=== PATIENT | female | born 1960 | race Caucasian/White ===

== ENCOUNTER → 2023-12-03 12:19 | Outpatient (REF) | payer OTHER, SELFPAY | LOC: WDC 12:19 | PROVIDERS: ATTENDING PHYSICIAN Family Medicine | DX: Z12.31 Encounter for screening mammogram for malignant neoplasm of breast (principal) | CPT/HCPCS: 77063; 77067 ==

== ENCOUNTER → 2025-01-08 16:15 | Outpatient (REF) | payer OTHER, SELFPAY | LOC: WDC 16:15 | PROVIDERS: ATTENDING PHYSICIAN Family Medicine | DX: Z12.31 Encounter for screening mammogram for malignant neoplasm of breast (principal) | CPT/HCPCS: 77063; 77067 ==

== ENCOUNTER 2025-02-01 06:43 | Observation (INO) | payer OTHER, SELFPAY ==
[2025-01-31 23:30] VITALS: BP 143/99; BMI 31.6
[2025-01-31 23:33] VITALS: BP 143/99
[2025-02-01] VITALS (18 sets, daily range): BP systolic 108–171; BP diastolic 65–110; PULSE 73; BMI 31.1
[2025-02-01 00:04] LABS: % Basophils 1.1 % (0-2); % Eosinophils 1.9 % (0-6); % Immature Granulocytes 0.2 % (0-0.5); % Monocytes 6.5 % (1.7-9.3); % Neutrophils 55.3 % (42.2-75.2); Absolute Basophils 0.1 10^3/uL (0-0.2); Absolute Eosinophils 0.1 10^3/uL (0-0.7); Absolute Lymphocytes 2.2 10^3/uL (1.2-3.4); Absolute Monocytes 0.4 10^3/uL (0.1-0.6); Absolute Neutrophils 3.4 10^3/uL (1.4-6.5); Hematocrit 43.6 % (37.0-47.0); Hemoglobin 14.9 g/dL (12.0-16.0); Mean Corp Hgb Conc. 34.2 g/dL (33.0-37.0); Mean Corpuscular Hgb 29.7 pg (27.0-31.0); Mean Platelet Volume 9.3 fL (7.4-10.4); Nucleated Red Blood Cells % 0 %; Platelet Count 240 10^3/uL (130-400); Red Blood Cell Count 5.01 10^6/uL (4.20-5.40); Red Cell Dist. Width 13.5 % (11.5-14.5); White Blood Cell Count 6.2 10^3/uL (4.8-10.8)
[2025-02-01 00:23] LABS: ALT (SGPT) 17 U/L (0-35); AST (SGOT) 24 U/L (14-36); Alkaline Phosphatase 86 U/L (38-126); Blood Urea Nitrogen 18 mg/dl (7-17); Calcium 10.5 mg/dl (8.4-10.2); Carbon Dioxide 22 mmol/L (22-30); Chloride 112 mmol/L (98-107); Estimated Creatinine Clearance 65 ml/min; Glucose 122 mg/dl (70-99); Potassium 4.4 mmol/L (3.5-5.1); Sodium 146 mmol/L (135-145); Total Bilirubin 0.5 mg/dl (0.2-1.3); Total Protein 7.8 g/dl (6.3-8.2); eGFR > 60.00
[2025-02-01 00:36] LABS: Troponin I < 0.012 ng/ml
[2025-02-01] MEDS: NSS 1000 IV ×3 (03:24→17:28)
[2025-02-01 03:52] LABS: Alcohol None Detected
[2025-02-01 04:22] LABS: TSH Reflex To Free T4 1.49 uIU/ml (0.47-4.68)
--- NOTE | 2025-02-01 05:00 | ED.GENMED ---
History of Present Illness
General
Chief Complaint: Weakness
Source: patient and ambulance crew
Exam Limitations: altered mental status
Time Seen by Provider: 02/01/25 02:31
Nursing documentation reviewed up to this point in time: agreed with
History of Present Illness
History of Present Illness:
This is a 64-year-old woman who resides at home with her . She has history of hypertension, maintained on lisinopril/hydrochlorothiazide. She presents via EMS after suffering a fall, denies injury but admits to generalized weakness for the
past week. She arrives via EMS. No family accompanying. Report from EMS notes that family is concerned as patient has not been acting herself.
Patient arrives quite drowsy, denies pain.
She admits to occasional alcohol use but denies recent alcohol use. She denies drug use.
She is unsure as to her current medications. According to EMS maintained on lisinopril/hydrochlorothiazide.
Past History
Past History
ED Past Medical History: HTN and Other (Hepatitis C, ankle fractures)
ED Past Surgical History: Gynecological (Tubal ligation)
Social History
Tobacco: Smoker
Alcohol: Occasional
Personal:
Living: with family
Employment: Not employed
Family History
Family History: Diabetes
Phy Exam
Physical Exam
Physical Exam:
GENERAL: 64-year-old woman appears somewhat older than stated age, mildly disheveled, moderately drowsy, frequently falling asleep during initial evaluation requiring repeated verbal and tactile stimuli. She is able to answer a few simple yes and
no questions appropriately. She denies pain.
EYE: pupils equal and reactive. anicteric. The head is normocephalic, atraumatic.
NECK: Supple, nontender, no meningismus, no significant adenopathy.
ENT: posterior pharynx is clear, oral mucosa is dry. TM clear b/l, nares patent.
CARDIAC: Regular rate and rhythm. no murmur. No palpable chest wall tenderness.
LUNGS: Clear breath sounds bilaterally, no acute respiratory distress
ABDOMEN: Soft, nondistended, without focal tenderness, no r/g, no cvat. normoactive BS.
BACK: No mid bony tenderness. No palpable bony pelvic tenderness.
NEUROLOGICAL: Moderately drowsy, oriented x 2, motor strength 5/5 bilateral upper extremities, 3/5 bilateral lower extremities. Gross sensation is intact.
SKIN: Warm and dry, normal color, skin intact. No rash.
MUSCULOSKELETAL: No C/C/E. peripheral pulses are full and equal b/l. No palpable tenderness.
PSYCH: Moderately drowsy.
Course
Orders/Labs/Results
Orders:
Orders
01/31/25 23:36
Electrocardiogram (*1) Urgent
Reason for Study: Fatigue / Weakness
01/31/25 23:37
EKG- Treatment ONCE
01/31/25 23:53
Alcohol Urgent
Complete Blood Count/With Diff Urgent
Comprehensive Metabolic Panel Urgent
TSH Reflex To Free T4 Urgent
Comment: ADD ON
Troponin I Urgent
02/01/25 00:[address] [CT Head W/o Iv Contrast] Urgent
Comment:
Reason For Exam: suspected fall with head strike
02/01/25 02:32
Add On- LAB Urgent
Tests Added?: ETOH, TSH w reflex to free T-4
02/01/25 03:10
0.9% Sodium Chloride 1000 ml [Nss] 1,000 ml IV BOLUS
CR Chest Portable - 1 View Urgent
Comment:
Reason For Exam: hypoxia, confusion
Reason Study Needs to be Portable: Unable to Transport
02/01/25 04:28
Fentanyl, Urine Urgent
Urine Drug Abuse Screen Urgent
Date Specimen was Collected: 02/01/25
Time Specimen was Collected: 04:27
Abnormal Lab Results
01/31/25 02/01/25
23:53 04:28
Sodium 146 H mmol/L
(135-145)
Chloride 112 H mmol/L
(98-107)
BUN 18 H mg/dl
(7-17)
Glucose 122 H mg/dl
(70-99)
Calcium 10.5 H mg/dl
(8.4-10.2)
U Benzodiazepines Scrn Positive H
(Negative)
U Marijuana (THC) Screen Positive H
(Negative)
01/31/25 23:53
01/31/25 23:53
Vital Signs
Initial and Last Documented VS:
Initial Vital Signs
Temp Pulse Resp BP Pulse Ox
98.8 F 98 16 143/99 94
01/31/25 23:30 01/31/25 23:30 01/31/25 23:30 01/31/25 23:30 01/31/25 23:30
Last Documented Vital Signs
Temp Pulse Resp BP Pulse Ox
98.8 F 76 12 113/81 96
01/31/25 23:30 02/01/25 02:30 02/01/25 02:30 02/01/25 02:00 02/01/25 02:30
MDM/Problems Addressed
Differential Diagnosis Includes:
Concern for acute intoxication, toxic metabolic encephalopathy, CVA, closed head injury
She remains hemodynamically stable. No respiratory distress.
Reported room air pulse ox prehospital of 90%, currently comfortable at 98% on 1-1/2 L nasal cannula. Concern for potential respiratory acidosis thus will check end-tidal CO2 though.
CT of the head completed, results pending but reviewed by myself, no acute findings.
Labs thus far unremarkable. Will add alcohol level, will check urine drug screen, thyroid function.
EKG shows normal sinus rhythm with occasional unifocal PVCs. Similar and unchanged from previous EKG 2012.
*Radiology
Radiology exam reviewed: radiology read reviewed
*Pulse Oximetry
Patient hypoxic: no
*EKG
Interpreted by ED Provider?: Yes
Comparison EKG: no changes
Rate: normal
Rhythm: sinus and PVC's
Nerinx: normal axis
Interval: normal interval
QRS Pattern: normal QRS
Ischemia: no ischemia
*Network Support Manager Interpretation
Rate: normal
Interpretation: normal
Rhythm: sinus
*Critical Care Note
Total Time (30-74mins, 75-104mins- exclusive of procedures): Not Applicable
Update Note
Update Note:
05:20
CT of the head is unremarkable.
EtOH is negative.
End-tidal CO2 of 40
Urine drug screen positive for benzodiazepines as well as THC. PDMP reviewed, patient received a few prescriptions for oxycodone as well as tramadol August of this year. None since and no prior prescription for benzodiazepine.
She remains significantly drowsy.
At this point unclear if drowsiness is related to benzodiazepine/THC use versus an unclear cause for toxic metabolic encephalopathy. Will admit to hospitalist service.
ED Attending Note
-
Portions of this chart may have been created with voice recognition software.� Occasional wrong word or��sound alike� substitutions may have occurred due to the inherent limitations of voice recognition software.
Discharge Plan
Departure
Patient Disposition: Admit
Date of Disposition: 02/01/25
Time of Disposition: 05:26
Admit to: Telemetry
Admit to doctor: Bradley
Presentation/result/management discussed w/ accepting MD/DO: Hospitalist
Condition: Fair
Discharge Problem:
Acute alteration in mental status, Toxic metabolic encephalopathy
Prescriptions:
No Action
Women's Daily Caplet
ibuprofen 800 MG tablet
800 mg PO Q6HPRN PRN (Reason: pain. take with food.) Qty: 30 0RF
hydrocodone-acetaminophen 1 TABLET tablet
1 tab PO QIDPRN PRN (Reason: moderate pain.) Qty: 11 0RF
cyclobenzaprine 10 MG tablet
10 mg PO TIDPRN PRN (Reason: spasm) Qty: 9 0RF
Referrals:
Hola Rodriguez DO [Family Provider, Family Practice]
Interventions
Interventions:
*Risk Screen - Suicide Last Done: 01/31/25 23:30
*General Assessment Last Done: 01/31/25 23:30
*ED- Fall Risk Assessment Last Done: 01/31/25 23:42
*ED COVID-19 Vaccine History Last Done: 01/31/25 23:42
ED- Cardiac Assessment Last Done: 01/31/25 23:43
ED- Neurological Assessment Last Done: 01/31/25 23:43
ED- Pulmonary Assessment Last Done: 01/31/25 23:43
Discharge Date and Time
Print Language: CZECH
[2025-02-01 05:13] LABS: Amphetamines Negative (Negative); Barbiturates Negative (Negative); Benzodiazepines Positive (Negative); Buprenorphine Negative (Negative); Cocaine Negative (Negative); Marijuana Positive (Negative); Methadone Negative (Negative); Methamphetamines Negative (Negative); Opiates Negative (Negative); Phencyclidine Negative (Negative); Tricyclic Antidepressants Negative (Negative)
[2025-02-01 05:21] LABS: Fentanyl, Urine Negative (Negative)
--- NOTE | 2025-02-01 06:23 | HPS.HSE ---
Family Physician
-
Family Physician: Hola Rodriguez
Chief Complaint
-
Altered Mental Status
History of Present Illness
Patient is a 64y F with PMH significant for hypertension and prior Hep C s/p treatment who presents to ED via EMS for evaluation of mental status change and fall. Patient arrived via EMS. She states that she had a fall at home, but can provide
no additional details or history. Unable to reach family via phone by both myself and ED physician.
Patient is sleepy / confused in the ED. Knows that she is in [facility]. Unable to provide clear history leading up to admission.
She denies any pain at present. She denies any recent illness.
Asked about BZD ingestion or drug use (BZD and THC positive on UDS) and patient denies.
States that she drinks alcohol occasionally but denies any this evening.
Medical History
Past Medical History
Past Medical History: Reports Other
Additional Past Medical History:
Hypertension
Hep C s/p Treatment
Portal Vein Thrombosis
Past Surgical History: Reports Other
Additional Past Surgical History:
Tubal Ligation
Hysterectomy
R Knee Surgery
Social History
Tobacco: Smoker (Current every day smoker. > 40 pack years total use.)
Alcohol: Occasional
Family History
Family History: Not pertinent
Allergies / Home Medications
Allergies reflects when Allergies were last updated in [facility].
Home Medications with original date entered in [facility]
Allergy/Medication List:
Allergies
Allergy/AdvReac Type Severity Reaction Status Date / Time
No Known Allergies Allergy Verified 09/06/19 11:08
Home Medications
Unable to obtain.
If medication reconciliation has not been performed, why?: Medication List N/A
Review of Systems
-
History Source: Patient (limited ROS due to lethargy / confusion)
A 12 point ROS was completed and negative except as noted: Yes
Constitutional: Denies Fever
Respiratory: Denies Cough or Trouble Breathing
Cardiac: Denies Chest Pain
Abdomen/GI: Denies Abdominal Pain, Nausea, Vomiting or Diarrhea
Musculoskeletal: Denies Joint Pain
Neurological: Denies Dizzy or Headache
Physical Exam
Vital Signs
Vital Signs
Temp Pulse Resp BP Pulse Ox
98.8 F 63 11 110/79 98
01/31/25 23:30 02/01/25 05:30 02/01/25 05:30 02/01/25 05:00 02/01/25 05:30
Physical Exam
General: Other (64y F in no acute distress. Sleeping comfortably. Wakes to vocal stimuli. Answers questions slowly. Appears disoriented / confused.)
HEENT: Other (Dry MM. Neck supple. )
Respiratory: Clear; No Wheezes, Rales or Rhonchi
Cardiac: S1/S2 and Regular Rhythm; No Murmur
GI: Soft, Non Tender, Non Distended and Normal Bowel Sounds
Musculoskeletal: No Clubbing, No Cyanosis and No Edema
Neuro: Other (Moves all extremities. No apparent focal deficits. )
Laboratory Results
-
01/31/25 23:53
01/31/25 23:53
Laboratory Results
Total Bilirubin 0.5 mg/dl (0.2-1.3) 01/31/25 23:53
AST 24 U/L (14-36) 01/31/25 23:53
ALT 17 U/L (0-35) 01/31/25 23:53
Alkaline Phosphatase 86 U/L (38-126) 01/31/25 23:53
Troponin I < 0.012 ng/ml 01/31/25 23:53
Impression/Plan
-
A/P: Patient is a 64y F with PMH significant for hypertension and prior Hep C who presents to ED for evaluation s/p fall at home.
Acute TME
Fall at Home
- Observe overnight for further evaluation and treatment.
- ? med effect / overdose with BZDs and THC in UDS.
- Patient denies taking either of these substances. No prescribed BZDs per PDMP.
- ? concussion from fall - no details of fall forthcoming from patient and cannot reach family.
- CT head without any acute abnormality.
- Monitor for clinical improvement over time.
- PT eval.
Mild Hypercalcemia
Mild Hypernatremia
- Likely reflective of degree of dehydration.
- IVFs and follow for improvement in labs / lytes.
History of Hep C
- s/p treatment in 2016. No known history of cirrhosis
- Continued social EtOH use per patient.
- Check ammonia.
- LFTs are normal.
DVT Prophylaxis: SCDs
Code Status: Full
[2025-02-01 07:15] LABS: Ammonia < 9 umol/L (9-30)
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
--- NOTE | 2025-02-01 14:22 | CM ---
Addendum entered by Shawnee Lloyd 02/01/25 15:48:
Spoke to pt's , Obs form verbally reviewed, copy left at bedside. [facility]
Original Note:
CM reviewed chart and met with pt bedside in ED. Lives in 2 story home with her , [address], 2nd floor bathroom. Independent in ADLs, has walker and cane, uses walker for ambulation. Discussed SNF and pt is agreeable to referrals to local
facilities. Also discussed [facility], she does not want to speak to anyone at this time and is not interested in [facility]. Attempted to reach her to discuss Observation
form and referrals, left voicemail. Per notes he is at work and will visit later today.
PCP: Hola Rodriguez
Pharmacy: [facility]
Plan: SNF pending acceptance and authorization
--- NOTE | 2025-02-01 16:51 | W.PN.UPDATE ---
Update Note
Progress Note Update
Cross-cover--> BP elevated--> will give hydralazine 10 mg iv x1. Needs to evaluate other contributing factors pain, stress, etc...
[2025-02-01] MEDS: APRESOLINE 10 MG IV (17:27)
--- NOTE | 2025-02-01 18:00 | PTCARENOTE ---
02/01- Patient transferred and oriented to unit without issue. AAOX3 but forgetful, unsteady on feet, dizzy. Able to stand and pivot a few steps but no extended ambulation at this time. Teley #[id number], currently NSR. Patient denies any current needs.
--- NOTE | 2025-02-01 22:44 | PTCARENOTE ---
Pt refuses orthostatic vitals at this time.
[2025-02-02] MEDS: NSS 1000 IV (02:51)
[2025-02-02 03:15] VITALS: BP 158/110
[2025-02-02] MEDS: APRESOLINE 5 MG IV (04:41)
[2025-02-02 05:38] VITALS: BMI 29.7
[2025-02-02 07:00] VITALS: BP 138/86
[2025-02-02 08:08] LABS: Hematocrit 46.2 % (37.0-47.0); Hemoglobin 16.1 g/dL (12.0-16.0); Mean Corp Hgb Conc. 34.8 g/dL (33.0-37.0); Mean Platelet Volume 9.1 fL (7.4-10.4); Platelet Count 228 10^3/uL (130-400); Red Blood Cell Count 5.37 10^6/uL (4.20-5.40); Red Cell Dist. Width 13.4 % (11.5-14.5); White Blood Cell Count 6.1 10^3/uL (4.8-10.8)
[2025-02-02 10:55] LABS: ALT (SGPT) 15 U/L (0-35); AST (SGOT) 22 U/L (14-36); Albumin 4.7 g/dl (3.5-5.0); Alkaline Phosphatase 99 U/L (38-126); Blood Urea Nitrogen 9 mg/dl (7-17); Calcium 10.7 mg/dl (8.4-10.2); Carbon Dioxide 27 mmol/L (22-30); Chloride 109 mmol/L (98-107); Direct Bilirubin 0.1 mg/dl (0.0-0.4); Estimated Creatinine Clearance 98 ml/min; Glucose 92 mg/dl (70-99); Magnesium 1.6 mg/dl (1.6-2.3); Potassium 4.3 mmol/L (3.5-5.1); Sodium 144 mmol/L (135-145); Total Bilirubin 0.6 mg/dl (0.2-1.3); Total Protein 7.8 g/dl (6.3-8.2); eGFR > 60.00
[2025-02-02 11:00] VITALS: BP 122/55
--- NOTE | 2025-02-02 11:21 | CM ---
Addendum entered by Swati Yates 02/02/25 15:10:
Patient's physician has cleared patient for discharge today to home with visiting nurses options reviewed with patient and patient is agreeable to [facility], [facility] liaison contacted.
Plan; Home with spouse and [facility].
Original Note:
OBS letter completed and placed on chart, physical therapy are recommending skilled placement, returned case inspector met with patient this morning and patient wants to return to home when stable, returned case inspector reached out to patient's spouseHola who will be
in to visit patient today and review rehab with patient, returned case inspector discussed [facility].
Plan; Skilled placement if patient is agreeable, patient wants to return to home, spouse to discuss with patient possible skilled placement at [facility].
[2025-02-02 12:08] VITALS: BP 122/55
--- NOTE | 2025-02-02 12:17 | VATNOTE ---
Right arm PIV site infiltrated upon assessment/rounds. edema noted 1-6 inchs.. warmth applied, arm elevated, primary Rn Frannie made aware, documented in chart.
--- NOTE | 2025-02-02 14:36 | W.DCSUMMARY ---
Discharge Summary
Discharge Data
Date of Admission: 02/01/25
Date of Discharge: 02/02/25
-
Pending Results: No
Hospital Course
64y F with PMH significant for hypertension and prior Hep C s/p treatment
Presented with altered mental status and s/p fall. UDS found to have benzodiazepines and marijuana. Head CT no acute intracranial abnormality. Was evaluated by physical therapy recommended SNF versus home PT. Declined SNF will go home with
physical therapy. Discussed history and recommended outpatient psychiatric follow-up
Avoid use of alcohol and illicit drugs
Please follow-up with drug and alcohol rehab as outpatient
Follow-up with PCP and psychiatry
Seen and examined on the day of discharge which was 02/02/2025. No new complaints. No acute overnight events.
NAD
Scleral Anicteric
MMM
No JVD
CTABL
RRR, S1/S2
Soft, NT, ND, BS+
Warm, Dry
AAOx3
Calm
More than 30 minutes spent in discharge including
Final examination of the patient
Summarizing hospital stay
Instructions for continuing care to all relevant caregivers
Preparation of discharge records, prescriptions, and referral forms
Total time spent (in minutes): 36mmins
Discharge Plan
-
Patient Disposition: Home with Home Care
Discharge Diagnosis/Procedures: Fall
Metabolic encephaolpathy
Condition: Good
Diet: As tolerated
Activity: As tolerated
Activity Restrictions/Additional Instructions:
Presented with altered mental status and s/p fall. UDS found to have benzodiazepines and marijuana. Head CT no acute intracranial abnormality. Was evaluated by physical therapy recommended SNF versus home PT. Declined SNF will go home with
physical therapy. Discussed history and recommended outpatient psychiatric follow-up
Avoid use of alcohol and illicit drugs
Please follow-up with drug and alcohol rehab as outpatient
Follow-up with PCP and psychiatry
Referrals:
Hola Rodriguez DO [Family Provider, [facility]]
Wenceslao Knight MD [Active, Psychiatry] - in two to three weeks
Prescriptions:
Continued
atorvastatin [Lipitor] 20 mg Tablet
20 mg PO QPM
diltiazem HCl 240 mg Capsule,Extended Release 24hr
240 mg PO DAILY
trazodone 100 mg Tablet
100 mg PO HS
lisinopril-hydrochlorothiazide 20-25 mg Tablet
1 tab PO DAILY
Discharge Orders:
Discharge Patient (As Directed); Ordered 02/02/25
Ordered By: Jericho Tavarez
Discharge Date and Time
Print Language: MALAWIAN
--- NOTE | 2025-02-02 15:43 | VNURNOTE ---
Home Health Liaison met with patient at bedside to discuss [facility] nurse/therapy, visits, schedule and homebound status. 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 Patient is agreeable to services
and understands that visits at home will be 2-3 x per week to assess and teach medical management. Patient is aware that [facility] will contact them for start of care in 1-2 days after discharge from .
[facility] referral completed in [facility].
== END 2025-02-02 16:57 | disposition home health service (06) ==
LOC: 4 WEST ACU 06:43
PROVIDERS: ADMITTING PHYSICIAN Hospitalist; ATTENDING PHYSICIAN Hospitalist; EMERGENCY PHYSICIAN Emergency Medicine; FAMILY PHYSICIAN Family Medicine
DX: T40.711A Poisoning by cannabis, accidental (unintentional), initial encounter (principal); R41.82 Altered mental status, unspecified; F17.210 Nicotine dependence, cigarettes, uncomplicated; E87.0 Hyperosmolality and hypernatremia; R53.83 Other fatigue; Y92.009 Unspecified place in unspecified non-institutional (private) residence as the place of occurrence of the external cause
CPT/HCPCS: 70450; 71045; 80053; 80306; 80307; 82077; 82140; 82248; 83735; 84443; 84484; 85025; 85027; 93005; 97116; G0378

== ENCOUNTER → 2025-02-16 15:14 | Outpatient (REF) | payer OTHER, SELFPAY | LOC: RAD 15:14 | PROVIDERS: ATTENDING PHYSICIAN Family Medicine | DX: R74.8 Abnormal levels of other serum enzymes (principal); Z72.0 Tobacco use | CPT/HCPCS: 71046 ==

== ENCOUNTER → 2025-03-08 08:44 | Outpatient (REF) | payer OTHER, SELFPAY | LOC: RAD 08:44 | PROVIDERS: ATTENDING PHYSICIAN Physician Assistant; FAMILY PHYSICIAN Family Medicine | DX: R74.8 Abnormal levels of other serum enzymes (principal) | CPT/HCPCS: 76700 ==